=== PATIENT | female | born 1975 | race Two or more races ===

== ENCOUNTER 2017-01-22 10:15 | Emergency (ER) | payer MEDICAID ==
[~2017-01-22] VITALS: Ht 162.6 cm; Wt 70.4 kg
[~2017-01-22 10:15] MED LIST: METF-312 PO
[2017-01-22 10:18] VITALS: BP 127/46
== END 2017-01-22 12:46 | disposition home or self-care (01) ==
LOC: ER 10:15
DX: K04.7 Periapical abscess without sinus (principal); E11.9 Type 2 diabetes mellitus without complications; Z88.0 Allergy status to penicillin; Z88.6 Allergy status to analgesic agent

== ENCOUNTER 2017-02-04 08:04 | Emergency (ER) | payer MEDICAID ==
[~2017-02-04] VITALS: Ht 162.6 cm; Wt 70.8 kg
[2017-02-04 09:02] LABS: Basophils # (auto) 0 uL; Basophils % (auto) 0.1 % (0.0-2.0); Eosinophils # (auto) 0.1 uL; Eosinophils % (auto) 0.8 % (0.0-7.0); Hematocrit 41.3 % (36.0-46.0); Hemoglobin 13.9 g/dL (12.2-16.2); Lymphocytes # (auto) 1.4 uL; Lymphocytes % (auto) 22.2 % (10.0-50.0); Mean Corpuscular Hemoglobin 30.2 pg (28.0-32.0); Mean Corpuscular Hgb Conc. 33.8 g/dL (32.0-36.0); Mean Corpuscular Volume 89.5 fL (80.0-100.0); Mean Platelet Volume 7.6 fL (7.4-10.4); Monocytes # (auto) 0.5 uL; Monocytes % (auto) 7.4 % (0.0-12.0); Neutrophils # (auto) 4.3 uL; Neutrophils % (auto) 69.5 % (37.0-80.0); Platelet Count (auto) 277 10^3/uL (140-450); White Blood Cell 6.3 10^3/uL (4.4-10.8)
[2017-02-04 09:26] LABS: Albumin 3.8 g/dL (3.4-5.0); Bilirubin, Total 0.7 mg/dL (0.2-1.0); Calcium 8.7 mg/dL (8.5-10.1)
[2017-02-04 10:45] VITALS: BP 127/78
== END 2017-02-04 11:17 | disposition home or self-care (01) ==
LOC: ER 08:04
DX: O26.891 Other specified pregnancy related conditions, first trimester (principal); K29.70 Gastritis, unspecified, without bleeding; R12 Heartburn; O24.911 Unspecified diabetes mellitus in pregnancy, first trimester; Z88.6 Allergy status to analgesic agent; Z88.0 Allergy status to penicillin
CPT/HCPCS: 36415; 80053; 82150; 83690; 84702; 85025